=== PATIENT | female | born 2000 | race Caucasian/White ===

== ENCOUNTER 2020-07-20 18:38 | Emergency (ER) | payer OTHER, MEDICAID ==
[~2020-07-20] VITALS: Ht 160 cm; Wt 58.1 kg
[2020-07-20 18:49] VITALS: Ht 160 cm; Wt 58.1 kg
[2020-07-20 21:01] VITALS: BP 116/70
== END 2020-07-20 21:02 | disposition home or self-care (01) ==
LOC: ED 18:38
DX: S39.011A Strain of muscle, fascia and tendon of abdomen, initial encounter (principal); R51.9 Headache, unspecified; M79.10 Myalgia, unspecified site; V49.49XA Driver injured in collision with other motor vehicles in traffic accident, initial encounter; Y93.I9 Activity, other involving external motion; Y92.413 State road as the place of occurrence of the external cause; Y99.8 Other external cause status
CPT/HCPCS: Q0162